=== PATIENT | female | born 1995 | race Caucasian/White ===

== ENCOUNTER 2024-11-15 20:55 | Emergency (ER) | payer SELFPAY ==
[~2024-11-15] VITALS: Ht 157.5 cm; Wt 61.2 kg
[2024-11-15 21:12] VITALS: BP 126/84; TEMP 98; O2SAT 98
== END 2024-11-15 22:10 | disposition home or self-care (01) ==
LOC: ER 20:59
DX: S60.142A Contusion of left ring finger with damage to nail, initial encounter (principal); W23.0XXA Caught, crushed, jammed, or pinched between moving objects, initial encounter; Y93.89 Activity, other specified; Y92.89 Other specified places as the place of occurrence of the external cause; Y99.8 Other external cause status